=== PATIENT | male | born 1950 | race American Indian/Alaskan Native ===

== ENCOUNTER 2017-03-12 09:22 | Emergency (ER) | payer OTHER ==
[2017-03-12] MEDS ORDERED: MOTRIN PO ONE (13:34)
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
[2017-03-12 14:02] VITALS: BP 140/87
== END 2017-03-12 14:02 | disposition home or self-care (01) ==
LOC: ED 09:22
DX: S39.012A Strain of muscle, fascia and tendon of lower back, initial encounter (principal); I10 Essential (primary) hypertension; C61 Malignant neoplasm of prostate; V49.49XA Driver injured in collision with other motor vehicles in traffic accident, initial encounter; Y93.89 Activity, other specified; Y92.89 Other specified places as the place of occurrence of the external cause; Y99.8 Other external cause status
CPT/HCPCS: 99282